=== PATIENT | female | born 1985 | race Caucasian/White ===

== ENCOUNTER 2018-02-20 13:14 | Emergency (ER) | payer SELFPAY ==
[~2018-02-20] VITALS: Ht 165.1 cm; Wt 60.0 kg
[2018-02-20] MEDS ORDERED: SUMA100T16 PO (13:18)
[2018-02-20] MEDS ORDERED: [UNRECOGNIZED DRUG - OTHER] (13:18)
[2018-02-20] MEDS ORDERED: ACETAMINOPHEN 325MG TABLET PO ONE (13:45)
[2018-02-20 16:53] VITALS: BP 122/77
== END 2018-02-20 16:57 | disposition home or self-care (01) ==
LOC: ER 14:02
DX: G43.909 Migraine, unspecified, not intractable, without status migrainosus (principal)
CPT/HCPCS: 99283